=== PATIENT | female | born 1975 | race Caucasian/White ===

== ENCOUNTER 2019-02-09 12:11 | Emergency (ER) | payer MEDICAID ==
[~2019-02-09] VITALS: Ht 157.5 cm; Wt 95.3 kg
[2019-02-09 12:23] VITALS: BP 143/88
--- NOTE | 2019-02-09 12:25 | NUR ---
PT AMBULATED TO BED
--- NOTE | 2019-02-09 12:56 | NUR ---
PT TO ED WITH C/O L SIDED BREAST REDNESS, PAIN, AND DISCHARGE X2 DAYS. DENIES RECENT INJURY OR TRAUMA. DRAINAGE NOTED TO L BREAST, YELLOW IN COLOR. PT IN BED FOR MD ANDERSON.
[2019-02-09] MEDS ORDERED: SULFAMETH/TRIMETH DS 800/160MG 1 TAB PO ONE (13:00)
[2019-02-09] MEDS ORDERED: IBUPROFEN 800 MG TAB PO ONE (13:00)
[2019-02-09 13:23] VITALS: BP 143/88
--- NOTE | 2019-02-09 13:23 | NUR ---
Patient discharged with v/s stable. Written and verbal after care instructions given and explained. Pt encouraged to take full course of antibiotics as prescribed. Pt encouraged to use warm compresses to affected area to help with pain and swelling. Patient alert, oriented and verbalized understanding of instructions. Ambulatory with steady gait. All questions addressed prior to discharge. ID band removed. Patient advised to follow up with PMD. Rx of MOTRIN 800MG, KEFLEX 500MG AND BACTRIM DS 800MG WAS given. Patient educated on indication of medication including possible reaction and side effects. Opportunity to ask questions provided and answered.
== END 2019-02-09 13:23 | disposition home or self-care (01) ==
LOC: MED 12:11
DX: N61.0 Mastitis without abscess (principal)
CPT/HCPCS: 99283